=== PATIENT | male | born 1965 | race Two or more races ===

== ENCOUNTER 2018-09-22 14:10 | Emergency (ER) | payer OTHER ==
[~2018-09-22] VITALS: Ht 182.9 cm; Wt 104.3 kg
[2018-09-22 14:23] VITALS: BP 132/68
[2018-09-22] MEDS ORDERED: SULF1TAB24 PO (14:38)
--- NOTE | 2018-09-22 14:39 | PHYS DOC ---
Adult General Chief Complaint Chief Complaint: ABSCESS HPI HPI Patient is a 53 year old male who presents with a reported abscess to his pubic area. The patient states that he has been shaving and developed a sore. He states that he popped this and had expressed a large amount of pus but now he has increased redness and tenderness to the area. The patient is a diabetic and states that he has a history of abscesses. He states that his last hemoglobin A1c was 9.2. He denies fever, nausea or vomiting. Review of Systems Review of Systems Constitutional: Denies fever or chills [] Respiratory: Denies cough or shortness of breath [] Cardiovascular: No additional information not addressed in HPI [] GI: Denies abdominal pain, nausea, vomiting, bloody stools or diarrhea [] : Denies dysuria or hematuria [] Musculoskeletal: Denies back pain or joint pain [] Integument: See history of present illness Neurologic: Denies headache, focal weakness or sensory changes [] Endocrine: Denies polyuria or polydipsia [] All other systems were reviewed and found to be within normal limits, except as documented in this note. Allergies Allergies Allergies Coded Allergies Type Severity Reaction Last Updated Verified Penicillins Allergy Severe HIVES 09/22/18 Yes Physical Exam Physical Exam Constitutional: Well developed, well nourished, no acute distress, non-toxic appearance. [] Cardiovascular:Heart rate regular rhythm, no murmur [] Lungs & Thorax: Bilateral breath sounds clear to auscultation [] Abdomen: Bowel sounds normal, soft, no tenderness, no masses, no pulsatile masses. [] Skin: 3 cm x 4 cm area of induration with no fluctuance noted Back: No tenderness, no CVA tenderness. [] Extremities: No tenderness, no cyanosis, no clubbing, ROM intact, no edema. [] Neurologic: Alert and oriented X 3, normal motor function, normal sensory function, no focal deficits noted. [] Psychologic: Affect normal, judgement normal, mood normal. [] Current Patient Data Vital Signs Vital Signs Date Time Temp Pulse Resp B/P (MAP) Pulse Ox O2 Delivery O2 Flow Rate FiO2 09/22/18 14:23 97.8 77 18 132/68 (89) 99 Room Air 97.8 EKG EKG [] Radiology/Procedures Radiology/Procedures [] Course & Med Decision Making Course & Med Decision Making Pertinent Labs and Imaging studies reviewed. (See chart for details) []I explained to the patient that this is not an abscess that I will be able to drain in the emergency department. The infection is actually in the tissue itself. He will be put on oral antibiotics. He was strongly encouraged to use hot compresses and to stop squeezing the area. I explained that he was just pushing the infection further into the tissue. He states understanding. Dragon Disclaimer Dragon Disclaimer This electronic medical record was generated, in whole or in part, using a voice recognition dictation system. Departure Departure Impression: Primary Impression: Cellulitis Disposition: HOME, SELF-CARE Condition: STABLE Referrals: LESA DILLARD MD (PCP) Patient Instructions: Cellulitis Additional Instructions: Take the antibiotic as directed. Use hot compresses multiple times daily. Follow -up with your primary care provider in 3-4 days for recheck. Scripts Sulfamethoxazole/Trimethoprim (BACTRIM DS TABLET) 1 Each Tablet 1 TAB PO BID for infection, #20 TAB Prov: SHELTON HENDERSON APRN 09/22/18 SHELTON HENDERSON APRN Sep 22, 2018 14:39
== END 2018-09-22 15:01 | disposition home or self-care (01) ==
LOC: ER 14:10
DX: N49.8 Inflammatory disorders of other specified male genital organs (principal); Z88.0 Allergy status to penicillin
CPT/HCPCS: 99283